=== PATIENT | female | born 1955 | race Caucasian/White ===

== ENCOUNTER → 2016-10-11 | Outpatient (REF) | payer OTHER ==
[~2016-10-11] MED LIST: AC325T PO; ACET325T38 PO; ALBU2.5V4 INH; AMLO10TA4 PO; AMLO5TAB4 PO; AMOX1TAB7 PO; ASPI162T PO; ASPI81TA55 PO; ATOR80TA PO; BENZ-13 PO; BMT1T PO; BUME1TAB4 PO; BUME2TAB3 PO; CARV25TA30 PO; CITA20TA12 PO; CLOP75TA3 PO; ENXP80I.8 SC; FAMO20TA13 PO; FERR-74 PO; FERR325T5 PO; FURO40TA4 PO; INSU100V2 SC; INSU100V32 SQ; INSU100V8 SC; MAGN400C PO; METF500T4 PO; METO50TA7 PO; MTL2.5T PO; MTL5T PO; MTP25TSR PO; NF-LISIN40 PO; NFMET1000 PO; NITR100C3 PO; NYST30CR TOP; NYST30CR3 TP; OXYGEN; PANT40TA2 PO; PANT40TA3 PO; POLY17PO2 PO; POTA20TA12 PO; POTA20TA7 PO; SPRN25T PO; WARF7.5T3 PO; WRF5T PO
[2016-10-11 17:40] LABS: ANION GAP 17.1 MEQ/L (3-15)
== END ==
LOC: LAB 16:25
PROVIDERS: ATTEND Family Medicine
DX: N18.3 Chronic kidney disease, stage 3 (moderate) (principal)
CPT/HCPCS: 80048

== ENCOUNTER → 2016-10-23 | Outpatient (REF) | payer OTHER ==
[2016-10-23 17:10] LABS: BASOPHILS % (AUTO) 0 % (0-2); EOSINOPHILS # (AUTO) 0.3 10^3uL; EOSINOPHILS % (AUTO) 3 % (0-4); LYMPHOCYTES # (AUTO) 1.2 X10^3; MEAN CORPUSCULAR HEMOGLOBIN 29.1 PG (26.0-34.0); MEAN CORPUSCULAR HGB CONC 33.4 g/dL (31.0-37.0); MEAN CORPUSCULAR VOLUME 87 FL (80-100); MEAN PLATELET VOLUME 10.9 FL (6.0-9.5); MONOCYTES # (AUTO) 0.6 X10^3; MONOCYTES % (AUTO) 8 % (3-11); NEUTROPHILS # (AUTO) 6.2 X10^3; NEUTROPHILS % (AUTO) 74 % (51-67); PLATELET COUNT 195 10^3uL (150-450); WHITE BLOOD COUNT 8.33 10^3uL (4.0-11.0)
[2016-10-23 17:34] LABS: ANION GAP 16.2 MEQ/L (3-15)
== END ==
LOC: LAB 16:53
PROVIDERS: ATTEND Physician Assistant Surgical
DX: I50.23 Acute on chronic systolic (congestive) heart failure (principal)
CPT/HCPCS: 80048; 85025

== ENCOUNTER → 2016-10-27 | Outpatient (REF) | payer OTHER ==
[2016-10-27 16:25] LABS: ANION GAP 17.7 MEQ/L (3-15)
== END ==
LOC: LAB 16:01
PROVIDERS: ATTEND Physician Assistant Surgical
DX: N18.3 Chronic kidney disease, stage 3 (moderate) (principal)
CPT/HCPCS: 80048

== ENCOUNTER → 2016-11-08 | Outpatient (CLI) | payer OTHER ==
[2016-11-08 11:57] LABS: ALBUMIN 3.6 g/dL (3.4-5.0); ANION GAP 19.6 MEQ/L (3-15); PHOSPHORUS 4.8 mg/dL (2.4-4.9)
[2016-11-08 12:38] LABS: TOTAL VOLUME,URINE 1300 ML
== END ==
LOC: LAB 11:10
PROVIDERS: ATTEND Internal Medicine Nephrology
DX: N18.4 Chronic kidney disease, stage 4 (severe) (principal)
CPT/HCPCS: 36415; 80069; 81050; 82575; 84156; 84300

== ENCOUNTER → 2016-11-20 | Outpatient (REF) | payer OTHER ==
[2016-11-20 17:14] LABS: BASOPHILS % (AUTO) 0 % (0-2); EOSINOPHILS # (AUTO) 0.2 10^3uL; EOSINOPHILS % (AUTO) 3 % (0-4); LYMPHOCYTES # (AUTO) 1.2 X10^3; MEAN CORPUSCULAR HEMOGLOBIN 29.5 PG (26.0-34.0); MEAN CORPUSCULAR HGB CONC 33.6 g/dL (31.0-37.0); MEAN CORPUSCULAR VOLUME 88 FL (80-100); MEAN PLATELET VOLUME 10.1 FL (6.0-9.5); MONOCYTES # (AUTO) 0.8 X10^3; MONOCYTES % (AUTO) 10 % (3-11); NEUTROPHILS # (AUTO) 5.9 X10^3; NEUTROPHILS % (AUTO) 72 % (51-67); PLATELET COUNT 213 10^3uL (150-450); WHITE BLOOD COUNT 8.17 10^3uL (4.0-11.0)
[2016-11-20 17:19] LABS: ALBUMIN 2.8 g/dL (3.4-5.0); ANION GAP 13.3 MEQ/L (3-15); CALCULATED IONIZED CALCIUM 4.2 mg/dL (3.8-4.6); TOTAL PROTEIN 5.8 g/dL (6.4-8.5)
== END ==
LOC: LAB 17:01
PROVIDERS: ATTEND Family Medicine
DX: E11.9 Type 2 diabetes mellitus without complications (principal); N18.3 Chronic kidney disease, stage 3 (moderate); E78.4 Other hyperlipidemia; I48.2 Chronic atrial fibrillation; D50.8 Other iron deficiency anemias; I50.23 Acute on chronic systolic (congestive) heart failure
CPT/HCPCS: 80053; 83036; 85025; 85610

== ENCOUNTER → 2017-02-07 | Outpatient (REF) | payer OTHER ==
[2017-02-07 17:01] LABS: ANION GAP 14.6 MEQ/L (3-15)
== END ==
LOC: LAB 16:26
PROVIDERS: ATTEND Family Medicine
DX: I50.23 Acute on chronic systolic (congestive) heart failure (principal); I48.2 Chronic atrial fibrillation
CPT/HCPCS: 80048; 85610

== ENCOUNTER → 2017-02-14 | Outpatient (CLI) | payer OTHER ==
[2017-02-14 16:41] LABS: ANION GAP 14.4 MEQ/L (3-15)
== END ==
LOC: LAB 15:57
PROVIDERS: ATTEND Family Medicine
DX: I10 Essential (primary) hypertension (principal)
CPT/HCPCS: 36415; 80048

== ENCOUNTER → 2017-02-23 | Outpatient (REF) | payer OTHER ==
[2017-02-23 16:14] LABS: ANION GAP 12.4 MEQ/L (3-15)
== END ==
LOC: LAB 15:37
PROVIDERS: ATTEND Family Medicine
DX: N18.3 Chronic kidney disease, stage 3 (moderate) (principal); E11.9 Type 2 diabetes mellitus without complications
CPT/HCPCS: 80048; 83036